=== PATIENT | female | born 1985 | race Caucasian/White ===

== ENCOUNTER → 2017-08-31 | Emergency (ER) | payer OTHER ==
[~2017-08-31] VITALS: Ht 167.6 cm; Wt 95.3 kg
== END | disposition home or self-care (01) ==
LOC: ER 14:01
DX: J06.9 Acute upper respiratory infection, unspecified (principal)

== ENCOUNTER 2019-04-30 08:34 | Emergency (ER) | payer OTHER ==
[~2019-04-30] VITALS: Ht 167.6 cm; Wt 104.3 kg
[2019-04-30] MEDS ORDERED: SINGULAIR10 MG (08:40)
[2019-04-30] MEDS ORDERED: ZYRTEC10 M3 (08:40)
== END 2019-04-30 14:16 | disposition home or self-care (01) ==
LOC: ER 08:34
DX: K52.9 Noninfective gastroenteritis and colitis, unspecified (principal)

== ENCOUNTER 2019-05-28 07:31 | Emergency (ER) | payer OTHER ==
[~2019-05-28] VITALS: Ht 167.6 cm; Wt 102.1 kg
[~2019-05-28 07:31] MED LIST: SINGULAIR10 MG; ZYRTEC10 M3
[2019-05-28] MEDS ORDERED: ACID REDUCER20 M1 PO (08:07)
[2019-05-28] MEDS ORDERED: ZOFRAN8 MG PO (08:08)
== END 2019-05-28 16:51 | disposition home or self-care (01) ==
LOC: ER 07:31
DX: R10.2 Pelvic and perineal pain (principal)

== ENCOUNTER 2019-06-01 14:15 | Emergency (ER) | payer OTHER ==
[~2019-06-01] VITALS: Ht 167.6 cm; Wt 98.0 kg
[~2019-06-01 14:15] MED LIST changes: +ACID REDUCER20 M1 PO; +ZOFRAN8 MG PO
[2019-06-01] MEDS ORDERED: PRILOSEC OTC20 MG (15:18)
== END 2019-06-01 16:53 | disposition home or self-care (01) ==
LOC: ER 14:15
DX: J90 Pleural effusion, not elsewhere classified (principal)

== ENCOUNTER 2019-06-16 01:39 | Emergency (ER) | payer OTHER ==
[~2019-06-16] VITALS: Ht 167.6 cm; Wt 98.0 kg
[~2019-06-16 01:39] MED LIST changes: +PRILOSEC OTC20 MG
[2019-06-16] MEDS ORDERED: SINGULAIR10 MG (02:22)
== END 2019-06-16 07:57 | disposition home or self-care (01) ==
LOC: ER 01:39
DX: D25.1 Intramural leiomyoma of uterus (principal)